=== PATIENT | male | born 1950 | race Caucasian/White ===

== ENCOUNTER 2023-09-25 16:39 | Inpatient (IN) | payer OTHER ==
[~2023-09-25] VITALS: Ht 174 cm; Wt 82.7 kg
[2023-09-25 16:51] VITALS: BP 125/80
[2023-09-25] MEDS ORDERED: PACERONE200 MG PO (17:10)
[2023-09-25] MEDS ORDERED: ELIQUIS5 M1 PO (17:11)
[2023-09-25] MEDS ORDERED: LIPITOR80 MG PO (17:12)
[2023-09-25] MEDS ORDERED: LAXATIVE5 MG PO (17:12)
[2023-09-25] MEDS ORDERED: PULMICORT R1 MG/2 ML INH (17:13)
[2023-09-25] MEDS ORDERED: COL-RITE100 M1 PO (17:14)
[2023-09-25] MEDS ORDERED: EXPECTORANT200 MG PO (17:14)
[2023-09-25] MEDS ORDERED: MELATONIN1 M7 PO (17:15)
[2023-09-25] MEDS ORDERED: PEPCID AC20 MG PO (17:16)
[2023-09-25] MEDS ORDERED: TRELEGY ELLIPT1 EAC1 INH (17:16)
[2023-09-25] MEDS ORDERED: [UNRECOGNIZED DRUG - OTHER] NAS (17:16)
[2023-09-25 17:49] LABS: HEMATOCRIT 31.9 % (42.0-52.0); MEAN CELL VOLUME 117.3 fl (80.0-94.0); MEAN CORPUSCULAR HGB 34.6 pg (27.0-31.0); MEAN CORPUSCULAR HGB CONC 29.5 g/dl (33.0-37.0); MEAN PLATELET VOLUME 9.9 fl (9.6-12.3); NUCLEATED RED BLOOD CELL 0.6 % (0.0-0.0); PLATELET COUNT AUTOMATED 139 10*3/uL (130-400); RED BLOOD COUNT 2.72 10*6/uL (4.50-5.90); RED CELL DISTRI WIDTH 15.5 % (0-14.5); WHITE BLOOD COUNT 6.8 10*3/uL (4.8-10.8)
[2023-09-25 17:52] LABS: MANUAL DIFF REFLEX YES
[2023-09-25 18:10] LABS: ALKALINE PHOSPHATASE 64 U/L (46-116); BUN 19 mg/dl (9-23); CHLORIDE 105 mmol/L (98-107); SGPT/ALT 22 U/L (5-49); TOTAL PROTEIN 6.1 gm/dL (6.0-8.0)
[2023-09-25 18:16] LABS: BASOPHILS 2 % (0-1); PLATELET SUFFICIENCY NORMAL (NORMAL); TOTAL CELLS COUNTED 100 #CELLS
[2023-09-25 18:17] LABS: POLYCHROMASIA SLIGHT
[2023-09-25 18:18] LABS: TARGET CELLS FEW
[2023-09-25] MEDS ORDERED: FUROSEMIDE 40 MG/4 ML VIAL IV ONE (18:20)
[2023-09-25] MEDS ORDERED: ACETAMINOPHEN 325 MG TAB PO PRN (20:35)
[2023-09-25] MEDS ORDERED: BISACODYL 5 MG TAB PO PRN (20:35)
[2023-09-25] MEDS ORDERED: MORPHINE Sulfate 2 MG/ML SYR IV PRN (20:35)
[2023-09-25] MEDS ORDERED: TEMAZEPAM 15 MG CAP PO PRN (20:35)
[2023-09-25] MEDS ORDERED: Acetaminophen/Hydrocodone 5 MG/325 MG TABLET PO PRN (20:35)
[2023-09-25 20:55] VITALS: BP 97/39
[2023-09-25 23:00] VITALS: BP 133/74
[2023-09-26 01:59] LABS: BILIRUBIN Negative (Negative); BLOOD Negative (Negative); CLARITY Clear (Clear); COLOR Yellow (Yellow); GLUCOSE Negative (Negative); KETONE Negative (Negative); LEUKO ESTERASE Negative (Negative); NITRITE Negative (Negative); UROBILINOGEN 0.2 E.U./dl (0.0-1.0)
[2023-09-26 02:09] LABS: BACTERIA TRACE; RBC 0-2 rbc/hpf (0-2); WBC 0-2 wbc/hpf (0-5)
[2023-09-26] MEDS ORDERED: Amiodarone Hydrochloride 200 MG TAB PO SCH ×2 (03:55→10:00)
[2023-09-26] MEDS ORDERED: BUDESONIDE 0.5 MG AMP NEB SCH ×3 (05:40→12:20)
[2023-09-26] MEDS ORDERED: FUROSEMIDE 40 MG/4 ML VIAL IV SCH (06:00)
[2023-09-26 06:25] LABS: MEAN CELL VOLUME 116.5 fl (80.0-94.0); MEAN CORPUSCULAR HGB 34.6 pg (27.0-31.0); MEAN CORPUSCULAR HGB CONC 29.7 g/dl (33.0-37.0); MEAN PLATELET VOLUME 10.7 fl (9.6-12.3); NUCLEATED RED BLOOD CELL 0.3 % (0.0-0.0); PLATELET COUNT AUTOMATED 149 10*3/uL (130-400); RED BLOOD COUNT 2.66 10*6/uL (4.50-5.90); RED CELL DISTRI WIDTH 15.7 % (0-14.5); WHITE BLOOD COUNT 6.7 10*3/uL (4.8-10.8)
[2023-09-26 06:59] LABS: ALKALINE PHOSPHATASE 60 U/L (46-116); BUN 16 mg/dl (9-23); CHLORIDE 102 mmol/L (98-107); CHOLESTEROL 108 mg/dL (<200); FREE T4 1.04 ng/dl (0.89-1.76); LDL CHOLESTEROL 58 mg/dL (9-159); SGPT/ALT 21 U/L (5-49); TOTAL PROTEIN 5.9 gm/dL (6.0-8.0); TRIGLYCERIDES 51 mg/dl (<150)
[2023-09-26 07:03] LABS: MANUAL DIFF REFLEX YES
[2023-09-26 07:05] LABS: POTASSIUM 3.5 mmol/L (3.4-5.1)
[2023-09-26 07:07] LABS: BASOPHILS 1 % (0-1); PLATELET SUFFICIENCY NORMAL (NORMAL); TOTAL CELLS COUNTED 100 #CELLS
[2023-09-26 08:00] VITALS: BP 116/52
[2023-09-26] MEDS ORDERED: GUAIFENESIN 600 MG TAB ER PO SCH (10:00)
[2023-09-26] MEDS ORDERED: FAMOTIDINE 10 MG TAB PO SCH (10:00)
[2023-09-26] MEDS ORDERED: APIXABAN 5 MG TAB PO SCH (10:00)
[2023-09-26] MEDS ORDERED: PERFLUTREN PROTEIN-A MICROSPHR 3 ML VIAL IV ONE (10:34)
[2023-09-26 12:00] VITALS: BP 103/78
[2023-09-26] MEDS ORDERED: Albuterol Sulf/Ipratropium 3 ML VIAL NEB PRN (12:05)
[2023-09-26] MEDS ORDERED: Albuterol Sulf/Ipratropium 3 ML VIAL NEB SCH (12:20)
[2023-09-26] MEDS ORDERED: BUMETANIDE 2 MG IV SCH (14:00)
[2023-09-26] MEDS ORDERED: BUMETANIDE 1 MG/4 ML VIAL IV SCH (14:00)
[2023-09-26] MEDS ORDERED: Polyethylene Glycol 15 ML BOT OPH PRN (15:00)
[2023-09-26 16:00] VITALS: BP 103/61
[2023-09-26 20:00] VITALS: BP 124/71
[2023-09-26] MEDS ORDERED: Budesonide/Formoterol Fumarate 160/4.5 inhaler INH SCH (22:00)
[2023-09-26] MEDS ORDERED: ATORVASTATIN CALCIUM 80 MG TAB PO SCH (22:00)
[2023-09-26] MEDS ORDERED: SODIUM CHLORIDE Nasal 44 ml bottle NAS PRN (22:35)
[2023-09-27] VITALS (8 sets, daily range): BP systolic 91–122; BP diastolic 57–88
[2023-09-27] MEDS ORDERED: TIOTROPIUM BROMIDE 18 MCG CAPSULES INHALER INH SCH (07:30)
[2023-09-27 09:32] LABS: HEMATOCRIT 31.1 % (42.0-52.0); MEAN CELL VOLUME 114.3 fl (80.0-94.0); MEAN CORPUSCULAR HGB 35.3 pg (27.0-31.0); MEAN CORPUSCULAR HGB CONC 30.9 g/dl (33.0-37.0); MEAN PLATELET VOLUME 10.7 fl (9.6-12.3); NUCLEATED RED BLOOD CELL 0.3 % (0.0-0.0); PLATELET COUNT AUTOMATED 155 10*3/uL (130-400); RED BLOOD COUNT 2.72 10*6/uL (4.50-5.90); RED CELL DISTRI WIDTH 15.6 % (0-14.5); WHITE BLOOD COUNT 6.8 10*3/uL (4.8-10.8)
[2023-09-27 09:33] LABS: MANUAL DIFF REFLEX YES
[2023-09-27] MEDS ORDERED: FAMOTIDINE 20 MG TAB PO SCH (10:00)
[2023-09-27] MEDS ORDERED: TRELEGY ELLIPTA INH SCH (10:00)
[2023-09-27] MEDS ORDERED: Metoprolol Tartrate 25 MG TAB PO SCH (10:00)
[2023-09-27 10:15] LABS: ATYPICAL LYMPHS 1 % (0-0); BASOPHILS 1 % (0-1); PLATELET SUFFICIENCY NORMAL (NORMAL); TOTAL CELLS COUNTED 100 #CELLS
[2023-09-27 10:33] LABS: BUN 14 mg/dl (9-23); CHLORIDE 97 mmol/L (98-107); POTASSIUM 3.3 mmol/L (3.4-5.1)
[2023-09-27] MEDS ORDERED: SPIRONOLACTONE 25 MG TAB PO SCH (11:45)
[2023-09-27] MEDS ORDERED: BUMETANIDE 1 MG/4 ML VIAL IV SCH (18:00)
[2023-09-27] MEDS ORDERED: SACUBITRIL/VALSARTAN 24 MG-26 MG TABLET PO SCH (18:00)
[2023-09-28] VITALS (7 sets, daily range): BP systolic 90–118; BP diastolic 45–70
[2023-09-28 11:32] LABS: BUN 13 mg/dl (9-23); CHLORIDE 97 mmol/L (98-107); POTASSIUM 3.5 mmol/L (3.4-5.1)
[2023-09-29] VITALS: BP 96/65
[2023-09-29 01:45] VITALS: BP 100/59
[2023-09-29 08:00] VITALS: BP 105/66
[2023-09-29 08:33] LABS: BUN 13 mg/dl (9-23); CHLORIDE 98 mmol/L (98-107); POTASSIUM 3.9 mmol/L (3.4-5.1)
[2023-09-29] MEDS ORDERED: [UNRECOGNIZED DRUG - OTHER] IV ONE (09:00)
[2023-09-29] MEDS ORDERED: Water, Sterile 10 ML VIAL IV ONE (09:00)
[2023-09-29] MEDS ORDERED: METOPROLOL SUCC25 M2 PO (09:11)
[2023-09-29] MEDS ORDERED: ALDACTONE25 MG PO (09:11)
[2023-09-29] MEDS ORDERED: ENTRESTO 24 MG1 EACH PO (09:11)
[2023-09-29] MEDS ORDERED: PACERONE200 MG PO (09:11)
[2023-09-29] MEDS ORDERED: VALTREX500 MG PO (09:13)
[2023-09-29] MEDS ORDERED: Valacyclovir Hydrochloride 500 MG CAP PO SCH (10:00)
[2023-09-29] MEDS ORDERED: METOPROLOL SUCCINATE XR 25 MG TAB PO SCH (10:00)
[2023-09-29 12:00] VITALS: BP 132/80
== END 2023-09-29 13:45 | disposition home or self-care (01) | DRG 292 ==
LOC: ED 16:39 → 5E 18:28 → EDHOLD 18:28 → 5E 22:26
PROVIDERS: Internal Medicine; Registered Nurse; ADMIT Internal Medicine; ATTEND Internal Medicine
DX: I50.23 Acute on chronic systolic (congestive) heart failure (principal); I42.9 Cardiomyopathy, unspecified; J96.12 Chronic respiratory failure with hypercapnia; E80.6 Other disorders of bilirubin metabolism; I08.1 Rheumatic disorders of both mitral and tricuspid valves; I27.20 Pulmonary hypertension, unspecified; I73.9 Peripheral vascular disease, unspecified; I25.10 Atherosclerotic heart disease of native coronary artery without angina pectoris; D53.9 Nutritional anemia, unspecified; F17.210 Nicotine dependence, cigarettes, uncomplicated; R73.9 Hyperglycemia, unspecified; I48.91 Unspecified atrial fibrillation; Z79.01 Long term (current) use of anticoagulants; Z79.899 Other long term (current) drug therapy; Z79.2 Long term (current) use of antibiotics; I25.2 Old myocardial infarction; Z86.73 Personal history of transient ischemic attack (TIA), and cerebral infarction without residual deficits; Z80.8 Family history of malignant neoplasm of other organs or systems

== ENCOUNTER 2023-09-30 19:52 | Emergency (ER) | payer OTHER ==
[~2023-09-30] VITALS: Ht 172.7 cm; Wt 77.1 kg
[~2023-09-30 19:52] MED LIST: ALDACTONE25 MG PO; COL-RITE100 M1 PO; ELIQUIS5 M1 PO; ENTRESTO 24 MG1 EACH PO; EXPECTORANT200 MG PO; LAXATIVE5 MG PO; LIPITOR80 MG PO; MELATONIN1 M7 PO; METOPROLOL SUCC25 M2 PO; PACERONE200 MG PO; PEPCID AC20 MG PO; PULMICORT R1 MG/2 ML INH; TRELEGY ELLIPT1 EAC1 INH; VALTREX500 MG PO; [UNRECOGNIZED DRUG - OTHER] NAS
[2023-09-30] MEDS ORDERED: methylPREDNISolone sod succ 125 MG VIAL IV ONE (20:00)
[2023-09-30] MEDS ORDERED: diphenhydrAMINE hydrochloride 50 MG/ML VIAL IV ONE (20:00)
[2023-09-30] MEDS ORDERED: FAMOTIDINE 50 ML IV ONE (20:00)
[2023-09-30] MEDS ORDERED: TRANEXAMIC ACID IN NACL,ISO-OS 100 ML IV ONE (21:50)
[2023-09-30] MEDS ORDERED: ACETAMINOPHEN 325 MG TAB PO ONE (22:45)
[2023-10-01] MEDS ORDERED: CLINDAMYCIN HCL 300 MG CAPSULE PO ONE (02:15)
[2023-10-01] MEDS ORDERED: CLINDAMYCIN HC300 MG PO (02:45)
[2023-10-02] MEDS ORDERED: ONDANSETRON4 MG SL (05:26)
== END 2023-10-01 02:47 ==
LOC: ED 19:52
DX: K13.0 Diseases of lips (principal); I11.0 Hypertensive heart disease with heart failure; I50.9 Heart failure, unspecified; J44.9 Chronic obstructive pulmonary disease, unspecified; K21.9 Gastro-esophageal reflux disease without esophagitis; I48.91 Unspecified atrial fibrillation; Z87.891 Personal history of nicotine dependence

== ENCOUNTER 2023-10-02 03:03 | Emergency (ER) | payer OTHER ==
[~2023-10-02 03:03] MED LIST changes: +CLINDAMYCIN HC300 MG PO
[2023-10-02 03:30] LABS: MEAN CELL VOLUME 114.4 fl (80.0-94.0); MEAN CORPUSCULAR HGB 33.7 pg (27.0-31.0); MEAN CORPUSCULAR HGB CONC 29.5 g/dl (33.0-37.0); MEAN PLATELET VOLUME 10.2 fl (9.6-12.3); NUCLEATED RED BLOOD CELL 0.3 % (0.0-0.0); PLATELET COUNT AUTOMATED 267 10*3/uL (130-400); RED BLOOD COUNT 3.41 10*6/uL (4.50-5.90); RED CELL DISTRI WIDTH 14.6 % (0-14.5)
[2023-10-02 03:35] LABS: MANUAL DIFF REFLEX YES
[2023-10-02 03:51] LABS: PLATELET SUFFICIENCY NORMAL (NORMAL); TOTAL CELLS COUNTED 100 #CELLS
[2023-10-02 03:52] LABS: OVALOCYTES FEW
[2023-10-02 03:53] LABS: POTASSIUM 4.5 mmol/L (3.4-5.1); TOTAL PROTEIN 7.5 gm/dL (6.0-8.0)
[2023-10-02] MEDS ORDERED: Ondansetron Hydrochloride 4 MG TAB SL ONE (04:30)
[2023-10-02] MEDS ORDERED: ONDANSETRON4 MG SL (05:26)
== END 2023-10-02 05:37 ==
LOC: ED 03:03
PROVIDERS: Internal Medicine
DX: K52.9 Noninfective gastroenteritis and colitis, unspecified (principal); R11.2 Nausea with vomiting, unspecified; R06.02 Shortness of breath; I11.0 Hypertensive heart disease with heart failure; I50.9 Heart failure, unspecified; J44.9 Chronic obstructive pulmonary disease, unspecified; K21.9 Gastro-esophageal reflux disease without esophagitis; I48.91 Unspecified atrial fibrillation; Z87.891 Personal history of nicotine dependence

== ENCOUNTER 2023-10-15 16:15 | Inpatient (IN) | payer OTHER ==
[~2023-10-15] VITALS: Ht 172.7 cm; Wt 66.0 kg
[~2023-10-15 16:15] MED LIST changes: +ONDANSETRON4 MG SL
[2023-10-15 16:19] VITALS: BP 106/72
[2023-10-15] MEDS ORDERED: PACERONE200 MG PO (16:31)
[2023-10-15 17:28] LABS: HEMATOCRIT 34.7 % (42.0-52.0); MEAN CELL VOLUME 113.4 fl (80.0-94.0); MEAN CORPUSCULAR HGB 33.7 pg (27.0-31.0); MEAN CORPUSCULAR HGB CONC 29.7 g/dl (33.0-37.0); MEAN PLATELET VOLUME 10.5 fl (9.6-12.3); PLATELET COUNT AUTOMATED 211 10*3/uL (130-400); RED BLOOD COUNT 3.06 10*6/uL (4.50-5.90); RED CELL DISTRI WIDTH 14.6 % (0-14.5); WHITE BLOOD COUNT 6.8 10*3/uL (4.8-10.8)
[2023-10-15 17:34] LABS: MANUAL DIFF REFLEX YES
[2023-10-15 17:45] LABS: ACT PARTIAL THROMBO TIME 26.1 SECONDS (20.0-32.1)
[2023-10-15 17:49] LABS: ALKALINE PHOSPHATASE 46 U/L (46-116); BUN 14 mg/dl (9-23); CHLORIDE 99 mmol/L (98-107); CPK 131 U/L (34-171); LIPASE 62 U/L (12-53); POTASSIUM 4.6 mmol/L (3.4-5.1); SGPT/ALT 21 U/L (5-49); TOTAL PROTEIN 6.4 gm/dL (6.0-8.0)
[2023-10-15 17:52] LABS: BASOPHILS 1 % (0-1); PLATELET SUFFICIENCY NORMAL (NORMAL); STOMATOCYTE FEW; TOTAL CELLS COUNTED 100 #CELLS
[2023-10-15 17:56] LABS: URINE AMPHETAMINES Negative (1000ng/ml); URINE BARBITURATES Negative (200ng/ml); URINE BENZODIAZEPINES Negative (200ng/ml); URINE CANNABINOIDS (THC) Negative (50ng/ml); URINE COCAINE Positive (300ng/ml); URINE METHADONE Negative (300ng/ml); URINE OPIATES Negative (300ng/ml); URINE PHENCYCLIDINE Negative (25ng/ml)
[2023-10-15] MEDS ORDERED: SILVER SULFADIAZINE 25 GM TUBE T ONE (18:25)
[2023-10-15] MEDS ORDERED: Bacitracin Zinc 14 GM TUBE T ONE (18:25)
[2023-10-15 19:56] VITALS: BP 109/48
[2023-10-15] MEDS ORDERED: ACETAMINOPHEN 650 MG SUPP R PRN (21:00)
[2023-10-15] MEDS ORDERED: MORPHINE Sulfate 2 MG/ML SYR IV PRN (21:00)
[2023-10-15] MEDS ORDERED: Acetaminophen/Hydrocodone 5 MG/325 MG TABLET PO PRN (21:00)
[2023-10-15] MEDS ORDERED: Ondansetron Hydrochloride 4 MG/2 ML VIAL IV PRN (21:00)
[2023-10-15] MEDS ORDERED: BISACODYL 10 MG SUPP R PRN (21:00)
[2023-10-15] MEDS ORDERED: ACETAMINOPHEN 325 MG TAB PO PRN (21:00)
[2023-10-15] MEDS ORDERED: TEMAZEPAM 15 MG CAP PO PRN (21:00)
[2023-10-15] MEDS ORDERED: BISACODYL 5 MG TAB PO PRN (21:00)
[2023-10-15] MEDS ORDERED: Magnesium Hydroxide 30 ML UDC PO PRN (21:00)
[2023-10-15 21:13] VITALS: BP 101/65
[2023-10-15] MEDS ORDERED: Tdap Vaccine 0.5 ML SYR (Adult Vaccine) IM ONE (21:30)
[2023-10-15] MEDS ORDERED: ALUM-MAG HYDROX30 ML PO (21:34)
[2023-10-15] MEDS ORDERED: DEPAKOTE500 M2 PO (21:37)
[2023-10-15] MEDS ORDERED: APIXABAN 5 MG TAB PO SCH (22:00)
[2023-10-15] MEDS ORDERED: Bacitracin Zinc 14 GM TUBE T SCH (22:00)
[2023-10-16] VITALS: BP 118/75
[2023-10-16] MEDS ORDERED: diphenhydrAMINE hydrochloride 25 MG CAP PO PRN (00:10)
[2023-10-16 07:19] LABS: HEMATOCRIT 32.2 % (42.0-52.0); MEAN CELL VOLUME 112.2 fl (80.0-94.0); MEAN CORPUSCULAR HGB 33.8 pg (27.0-31.0); MEAN CORPUSCULAR HGB CONC 30.1 g/dl (33.0-37.0); MEAN PLATELET VOLUME 10.6 fl (9.6-12.3); PLATELET COUNT AUTOMATED 197 10*3/uL (130-400); RED BLOOD COUNT 2.87 10*6/uL (4.50-5.90); RED CELL DISTRI WIDTH 14.6 % (0-14.5); WHITE BLOOD COUNT 7.6 10*3/uL (4.8-10.8)
[2023-10-16 07:20] LABS: MANUAL DIFF REFLEX YES
[2023-10-16 07:47] LABS: BASOPHILS 2 % (0-1); PLATELET SUFFICIENCY NORMAL (NORMAL); POLYCHROMASIA SLIGHT; TOTAL CELLS COUNTED 100 #CELLS
[2023-10-16 07:48] LABS: SCHISTOCYTES FEW; TARGET CELLS FEW
[2023-10-16 08:00] VITALS: BP 151/70
[2023-10-16 08:00] LABS: BUN 14 mg/dl (9-23); CHLORIDE 99 mmol/L (98-107); POTASSIUM 4.7 mmol/L (3.4-5.1)
[2023-10-16] MEDS ORDERED: FLUTICASONE FUROATE INH SCH (10:00)
[2023-10-16] MEDS ORDERED: METOPROLOL SUCCINATE XR 25 MG TAB PO SCH (10:00)
[2023-10-16] MEDS ORDERED: Amiodarone Hydrochloride 200 MG TAB PO SCH (10:00)
[2023-10-16] MEDS ORDERED: VILANTEROL INH SCH (10:00)
[2023-10-16] MEDS ORDERED: SACUBITRIL/VALSARTAN 24 MG-26 MG TABLET PO SCH (10:00)
[2023-10-16] MEDS ORDERED: FAMOTIDINE 10 MG TAB PO SCH (10:00)
[2023-10-16] MEDS ORDERED: GUAIFENESIN 200 MG TAB PO SCH (10:00)
[2023-10-16] MEDS ORDERED: SPIRONOLACTONE 25 MG TAB PO SCH (10:00)
[2023-10-16] MEDS ORDERED: UMECLIDINIUM INH SCH (10:00)
[2023-10-16 12:00] VITALS: BP 118/72
[2023-10-16] MEDS ORDERED: SILVADENE,SSD C50 GM T (12:29)
[2023-10-16] MEDS ORDERED: SILVER SULFADIAZINE 25 GM TUBE T SCH (22:00)
[2023-10-16] MEDS ORDERED: DIVALPROEX (DR) 500 MG TAB PO SCH (22:00)
[2023-10-16] MEDS ORDERED: ATORVASTATIN CALCIUM 80 MG TAB PO SCH (22:00)
== END 2023-10-16 14:29 | DRG 935 ==
LOC: ED 16:15 → 5E 18:26 → EDHOLD 18:26 → 5E 20:40
PROVIDERS: Internal Medicine; Student in an Organized Health Care Education/Training Program; ADMIT Internal Medicine; ATTEND Internal Medicine
DX: T20.20XA Burn of second degree of head, face, and neck, unspecified site, initial encounter (principal); E44.1 Mild protein-calorie malnutrition; I50.22 Chronic systolic (congestive) heart failure; R82.5 Elevated urine levels of drugs, medicaments and biological substances; F14.90 Cocaine use, unspecified, uncomplicated; T25.222A Burn of second degree of left foot, initial encounter; J44.9 Chronic obstructive pulmonary disease, unspecified; D50.9 Iron deficiency anemia, unspecified; I48.0 Paroxysmal atrial fibrillation; X08.8XXA Exposure to other specified smoke, fire and flames, initial encounter; Y93.89 Activity, other specified; Y92.89 Other specified places as the place of occurrence of the external cause; Y99.8 Other external cause status; I25.2 Old myocardial infarction; Z87.891 Personal history of nicotine dependence; Z80.8 Family history of malignant neoplasm of other organs or systems; Z82.49 Family history of ischemic heart disease and other diseases of the circulatory system; Z79.899 Other long term (current) drug therapy; Z79.01 Long term (current) use of anticoagulants; Z68.22 Body mass index [BMI] 22.0-22.9, adult